=== PATIENT | male | born 1965 | race Caucasian/White ===

== ENCOUNTER 2022-12-14 11:26 | Emergency (ER) | payer BC, SELFPAY ==
--- NOTE | ~2022-12-14 | XR_ITS ---
EXAMINATION: XR SACRUM AND COCCYX CLINICAL INFORMATION: Sacral pain. COMPARISON: None available. TECHNIQUE: 2 views of the sacrum and 2 views of the coccyx were obtained. FINDINGS: There are no fractures. No bone, joint or soft tissue abnormality is demonstrated. XR/XR sacrum coccyx min 2V IMPRESSION: Unremarkable examination.
--- NOTE | ~2022-12-14 | XR_ITS ---
EXAMINATION: XR LUMBOSACRAL SPINE CLINICAL INFORMATION: Low back pain. COMPARISON: None available. TECHNIQUE: Three views of the lumbosacral spine. FINDINGS: The vertebral bodies and posterior elements are normal. The disc spaces are preserved and the vertebral alignment is normal. The paraspinal soft tissues are normal. XR/XR lumbar spine 2-3V IMPRESSION: Unremarkable lumbar spine.
[2022-12-14 11:35] VITALS: BP 154/94; BP 170/90; PULSE 56; PULSE 60; RESP 17; TEMP 36.5; O2SAT 96; O2SAT 97; BMI 27.5
--- NOTE | 2022-12-14 11:55 | PC.NURSE ---
Patient presents with back pain that has been worsening since Monday. Patient denies injury to the area. Patient was able to stand from EMS stretcher and walk to the stretcher in room. Patient is otherwise well appearing.
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
[2022-12-14 14:48] LABS: Appearance Urine Clear; Color Urine Yellow; Glucose Urine UA Negative (Negative); Leukocyte Esterase Urine Negative (Negative); Nitrite Urine Negative (Negative); Urine Blood Negative (Negative); Urine Ketones Negative (Negative); Urine Protein Negative (Neg-Trace)
[2022-12-14] MEDS: Ketorolac Tromethamine 30 MG/ML VIAL IVPUSH (15:53)
[2022-12-14] MEDS: predniSONE 20 MG TABLET 60 MG PO (17:18)
[2022-12-14] MEDS: oxyCODONE HCl Immed Release 5 MG TABLET PO (17:18)
[2022-12-14 17:27] VITALS: BP 150/85; PULSE 54; RESP 18; O2SAT 98
== END 2022-12-14 17:29 | disposition home or self-care (01) ==
PROVIDERS: Physician Assistant Medical; Emergency Provider Emergency Medicine
DX: M54.50 Low back pain, unspecified (principal); Z79.899 Other long term (current) drug therapy
CPT/HCPCS: 51700; 72100; 72220; 81003; 96374; 99284; J1885